=== PATIENT | female | born 1990 | race Caucasian/White ===

== ENCOUNTER 2022-09-30 18:08 | Emergency (ER) | payer OTHER, SELFPAY ==
[2022-09-30 18:08] VITALS: BP 143/100; PULSE 68; RESP 16; TEMP 36.8; O2SAT 98
--- NOTE | 2022-09-30 18:37 | ED.DENTAL ---
HPI - Dental/Oral General Chief complaint: Dental/Oral Stated complaint: right side dental pain Time Seen by Provider: 09/30/22 18:20 Source: patient Mode of arrival: ambulatory Limitations: no limitations History of Present Illness HPI Narrative: patient is a 32-year-old female with right-sided upper and lower dental pain. Patient has a plan for a dentist upcoming soon. MD Complaint: tooth pain Onset (ago): day(s) Duration: constant Severity: moderate Severity scale (1-10): 4 Relieving factors: NSAIDs Exacerbating factors: chewing, cold, heat and drinking fluids Context: history of dental caries and poor dental care Related Data Allergies Allergy/AdvReac Type Severity Reaction Status Date / Time No Known Allergies Allergy Unknown Unverified 12/03/18 02:32 Review of Systems Review of Systems: All systems reviewed & are unremarkable except as noted in HPI and below Constitutional: Constitutional: Reports no additional constitutional complaints Eyes: Eyes: Reports no additional eye complaints ENT: Reports system reviewed and no additional complaints, except as documented Cardiovascular: Cardiovascular: Reports no additional cardiovascular complaints Respiratory: Respiratory: Reports no additional respiratory complaints Gastrointestinal: Gastrointestinal: Reports no additional gastrointestinal complaints Genitourinary: Genitourinary: Reports no additional female genitourinary complaints Musculoskeletal: Musculoskeletal: Reports no additional musculoskeletal complaints Integumentary/Breasts: Skin/Breast: Reports system reviewed and no additional complaints, except as docu Neurologic: Reports system reviewed and no additional complaints, except as documented Psychiatric: Psychiatric: Reports no additional psychiatric complaints Endocrine: Endocrine: Reports no additional endocrine complaints Hematologic/Lymphatic: Hematologic/Lymphatic: Reports no additional hematologic/lymphatic complaints Allergic/Immunologic: Allergic/Immunologic: Reports no additional allergic/immunologic complaints Exam Const: General: healthy appearing Nutritional Appearance: well nourished Orientation/consciousness: patient oriented x3 Limitations: no limitations HENMT: Head: normal to inspection Other: Patient has multiple dental caries with fractured teeth especially on the right greater than left with decay appreciated Eyes: Conjunctivae: conjunctivae normal Neck: Neck: normal visual inspection Chest: Chest palpation & inspection: normal inspection of the chest Resp: Effort & Inspection: normal respiratory effort Auscultation: clear to auscultation bilaterally Cardio: Rate: regular rate Rhythm: regular rhythm Heart sounds: no murmurs GI: Auscultation: normal bowel sounds : General: Yes bladder normal to palpation Skin: General skin exam: normal color Rashes: no rashes Neuro: General: patient oriented x3 and moves all extremities Extrem: General: normal to inspection Psych: Mental Status: mental status grossly normal Course Vital Signs Vital signs: Vital Signs Temperature 36.8 C 09/30/22 18:08 Pulse Rate 68 09/30/22 18:08 Respiratory Rate 16 09/30/22 18:08 Blood Pressure 143/100 H 09/30/22 18:08 Pulse Oximetry 98 09/30/22 18:08 Oxygen Delivery Room Air 09/30/22 18:08 Temperature 36.8 C 09/30/22 18:08 Pulse Rate 68 09/30/22 18:08 Respiratory Rate 16 09/30/22 18:08 Blood Pressure 143/100 H 09/30/22 18:08 Pulse Oximetry 98 09/30/22 18:08 Oxygen Delivery Room Air 09/30/22 18:08 Discharge Plan Discharge Clinical Impression: Mandible pain, Maxilla pain Patient Disposition: Home, Self-Care Condition: Stable Instructions: Antibiotic Form, Toothache (ED), Mouth Care (ED) Prescriptions: New amoxicillin-pot clavulanate [Augmentin] 500-125 mg tablet 1 tablet PO Q12H 10 Days Qty: 20 0RF Follow-up/Referrals: UNKNOWN,DOCTOR [P
[2022-09-30] MEDS: AMOXICILLIN/CLAVULANATE K 500-125 MG TAB 1 TABLET PO (18:47)
--- NOTE | 2022-09-30 18:56 | PC.NURSE ---
1854-REPORT OBTAINED FROM MARGARETTE CRISTOBAL . PT HAS PENDING DISCHARGE
--- NOTE | 2022-09-30 19:05 | PC.NURSE ---
1905-PT NOTED TO BE AMBULATORY TO LOBBY/EXIT WITH STEADY GAIT, APPEARS IN NAD
== END 2022-09-30 19:07 | disposition home or self-care (01) ==
LOC: CHSED 18:53
PROVIDERS: Emergency Provider Emergency Medicine
DX: R68.84 Jaw pain (principal)
CPT/HCPCS: 99283; A9270